=== PATIENT | male | born 1965 | race African-American/Black ===

== ENCOUNTER 2017-08-08 14:48 | Inpatient (IN) | payer MEDICAID ==
[~2017-08-08] VITALS: Ht 180.3 cm; Wt 107.5 kg
[2017-08-08] MEDS ORDERED: ALBUTEROL (0.083%) 2.5MG/3ML NEB HHN ONE (19:00)
[2017-08-08 19:08] LABS: BASOPHILS % 0.6 % (0.0-2.0); EOSINOPHILS % 2.2 % (0.0-5.0); HEMATOCRIT. 40.3 % (42.0-52.0); HEMOGLOBIN. 13.1 g/dL (14.0-18.0); LYMPHOCYTES % 18.2 % (20.0-50.0); MEAN CORPUSCULAR HEMOGLOBIN 27.6 pg (28.0-32.0); MEAN CORPUSCULAR VOLUME 84.8 fL (80.0-94.0); MEAN PLATELET VOLUME 8.9 fl (7.4-10.4); MONOCYTES % 8.6 % (2.0-8.0); NEUTROPHILS % 70.4 % (40.0-76.0); PLATELET 231 x1000/uL (130-400); RED BLOOD CELL COUNT 4.75 mill/uL (4.7-6.1); RED CELL DISTRIBUTION WIDTH 17.2 % (11.6-14.6)
[2017-08-08 19:14] LABS: INR 1.2; PARTIAL THROMBOPLASTIN TIME 24.3 sec (23.4-31.0); PROTHROMBIN TIME 12.8 sec (9.4-11.6)
[2017-08-08 19:17] LABS: CARBON DIOXIDE 27 mEq/L (21-32); CHLORIDE 108 mEq/L (98-107)
[2017-08-08 19:22] LABS: TROPONIN I 0.03 ng/mL (0.00-0.04)
[2017-08-08 19:53] LABS: CLARITY URINE CLEAR (CLEAR); COLOR URINE YELLOW (YELLOW); KETONES URINE NEGATIVE (NEGATIVE); LEUKOCYTE ESTERASE URINE TRACE (NEGATIVE); NITRITE URINE NEGATIVE (NEGATIVE); OCCULT BLOOD URINE NEGATIVE (NEGATIVE); PROTEIN URINE TRACE (NEGATIVE)
[2017-08-08] MEDS ORDERED: ASPIRIN 325MG TABLET PO ONE (20:15)
[2017-08-08] MEDS ORDERED: FUROSEMIDE 40MG/4ML VIAL IVP ONE (20:15)
[2017-08-08] MEDS ORDERED: IPRATROPIUM/ALBUTEROL 0.5-3(2.5)MG/3ML NEB INH PRN (23:45)
[2017-08-08] MEDS ORDERED: CLONIDINE 0.1MG TABLET PO PRN (23:45)
[2017-08-08] MEDS ORDERED: ACETAMINOPHEN 325MG TABLET PO PRN (23:45)
[2017-08-08] MEDS ORDERED: ONDANSETRON HCL 4MG/2ML VIAL IV PRN (23:45)
[2017-08-08] MEDS ORDERED: MAGNESIUM/ALUMINUM HYDROXIDE/SIMETHICONE 30ML UDC PO PRN (23:45)
[2017-08-09 05:54] LABS: BASOPHILS % 0.6 % (0.0-2.0); EOSINOPHILS % 2.1 % (0.0-5.0); HEMATOCRIT. 42.1 % (42.0-52.0); HEMOGLOBIN. 13.4 g/dL (14.0-18.0); LYMPHOCYTES % 16.7 % (20.0-50.0); MEAN CORPUSCULAR HEMOGLOBIN 27.1 pg (28.0-32.0); MEAN CORPUSCULAR VOLUME 85.2 fL (80.0-94.0); MEAN PLATELET VOLUME 8.8 fl (7.4-10.4); MONOCYTES % 12.3 % (2.0-8.0); NEUTROPHILS % 68.3 % (40.0-76.0); PLATELET 221 x1000/uL (130-400); RED BLOOD CELL COUNT 4.95 mill/uL (4.7-6.1); RED CELL DISTRIBUTION WIDTH 17.5 % (11.6-14.6)
[2017-08-09 06:09] LABS: TROPONIN I 0.04 ng/mL (0.00-0.04)
[2017-08-09 10:17] LABS: *AMPHETAMINES SCREEN URINE NEGATIVE (NEGATIVE); *BARBITURATES SCREEN URINE NEGATIVE (NEGATIVE); *BENZODIAZEPINES SCREEN URINE NEGATIVE (NEGATIVE); *COCAINE SCREEN URINE PRESUMTIVE POSITIVE (NEGATIVE); CANNABINOID URINE SCREEN NEGATIVE (NEGATIVE); METHADONE URINE SCREEN NEGATIVE (NEGATIVE); OPIATES URINE SCREEN NEGATIVE (NEGATIVE); PHENCYCLIDINE URINE SCREEN NEGATIVE (NEGATIVE)
[2017-08-09] MEDS: FUROSEMIDE 40MG/4ML VIAL IV SCH ×2 (11:01→16:41)
[2017-08-09 12:00] VITALS: BP 170/117
[2017-08-09 13:25] LABS: CLARITY URINE CLEAR (CLEAR); COLOR URINE YELLOW (YELLOW); KETONES URINE NEGATIVE (NEGATIVE); LEUKOCYTE ESTERASE URINE NEGATIVE (NEGATIVE); NITRITE URINE NEGATIVE (NEGATIVE); OCCULT BLOOD URINE NEGATIVE (NEGATIVE); PH URINE 7.5 (4.5-8.0); PROTEIN URINE NEGATIVE (NEGATIVE); SPECIFIC GRAVITY URINE 1.007 (1.005-1.030); UROBILINOGEN URINE 0.2 E.U./dL (0.2-1.0)
[2017-08-09 13:30] VITALS: BP 170/117
[2017-08-09 13:50] LABS: HEPATITIS B SURFACE ANTIGEN NEGATIVE
[2017-08-09 14:18] LABS: HEPATITIS B CORE AB IGM NEGATIVE
[2017-08-09 14:20] LABS: HEPATITIS A AB IGM NEGATIVE (NEGATIVE)
[2017-08-09 15:30] VITALS: BP 170/117
[2017-08-09] MEDS ORDERED: LISINOPRIL 10MG TABLET PO SCH (15:30)
[2017-08-09 15:39] LABS: CREATINE KINASE MB FRACTION 3.5 ng/mL (0.5-3.6); TROPONIN I 0.02 ng/mL (0.00-0.04)
[2017-08-09 16:00] VITALS: BP 157/105
[2017-08-09] MEDS ORDERED: INFLUENZA VIRUS VACCINE 0.5ML SYR IM ONE (17:00)
[2017-08-09] MEDS ORDERED: PNEUMOCOCCAL 23-VAL P-SAC VAC 0.5 ML IM ONE (17:00)
[2017-08-09] MEDS ORDERED: DEXTROSE 50% WATER 50ML SYRINGE IV PRN (18:00)
[2017-08-09] MEDS ORDERED: LISI-186 PO (18:33)
[2017-08-09] MEDS ORDERED: GLIP10TA10 PO (18:33)
[2017-08-09] MEDS ORDERED: ASPI-1159 PO (18:33)
[2017-08-09] MEDS ORDERED: FURO40TA5 PO (18:33)
[2017-08-09] MEDS ORDERED: DICL75TA5 PO (18:33)
[2017-08-09] MEDS ORDERED: CARV12.545 PO (18:33)
[2017-08-09 20:00] VITALS: BP 134/99
[2017-08-09] MEDS: INSULIN LISPRO 100 UNITS/ML SUBCUT SCH (21:00)
[2017-08-09] MEDS ORDERED: ATORVASTATIN CALCIUM 10MG TABLET PO SCH (21:00)
[2017-08-09] MEDS: BLOOD SUGAR DIAGNOSTIC STRIP TEST SCH (21:00)
[2017-08-09] MEDS: AMLODIPINE 5MG TABLET PO SCH (21:29)
[2017-08-09] MEDS: LISINOPRIL 10MG TABLET PO SCH (21:29)
[2017-08-09] MEDS: ENOXAPARIN 30MG/0.3ML SYR SUBCUT SCH (21:32)
[2017-08-09] MEDS: ISOSORB DINIT/HYDRALAZINE HCL 20/37.5MG TABLET PO SCH (22:57)
[2017-08-10] VITALS: BP 137/92
[2017-08-10 04:00] VITALS: BP 141/97
[2017-08-10] MEDS: BLOOD SUGAR DIAGNOSTIC STRIP TEST SCH ×2 (06:38→11:45)
[2017-08-10] MEDS: INSULIN LISPRO 100 UNITS/ML SUBCUT SCH ×2 (06:38→12:15)
[2017-08-10] MEDS: ISOSORB DINIT/HYDRALAZINE HCL 20/37.5MG TABLET PO SCH ×2 (06:40→13:46)
[2017-08-10 08:00] VITALS: BP 139/87
[2017-08-10] MEDS: ASPIRIN 81MG EC TABLET PO SCH ×2 (08:49→08:50)
[2017-08-10] MEDS: FUROSEMIDE 40MG/4ML VIAL IV SCH (08:50)
[2017-08-10] MEDS: ENOXAPARIN 30MG/0.3ML SYR SUBCUT SCH (08:50)
[2017-08-10] MEDS: LISINOPRIL 10MG TABLET PO SCH (08:50)
[2017-08-10] MEDS: AMLODIPINE 5MG TABLET PO SCH (08:50)
[2017-08-10 12:00] VITALS: BP 129/87
[2017-08-10] MEDS ORDERED: ATOR10TA PO (13:38)
[2017-08-10] MEDS ORDERED: AMLO5TAB88 PO (13:38)
[2017-08-10] MEDS ORDERED: ISOS1TAB PO (13:38)
[2017-08-10] MEDS ORDERED: LISI10TA5 PO (13:38)
[2017-08-10] MEDS ORDERED: FURO-151 PO (13:38)
[2017-08-10 16:00] VITALS: BP 136/91
[2017-08-10 16:41] VITALS: BP 128/68
== END 2017-08-10 17:10 | disposition home or self-care (01) | DRG 194 ==
LOC: ER 14:48 → EDBEDREQ 18:59 → 5WST 20:34 → EDBEDREQ 08-09 07:03 → ENRESERV 08-09 12:02
PROVIDERS: ADMIT Internal Medicine; ATTEND Internal Medicine
DX: I13.0 Hypertensive heart and chronic kidney disease with heart failure and stage 1 through stage 4 chronic kidney disease, or unspecified chronic kidney disease (principal); N17.9 Acute kidney failure, unspecified; E44.0 Moderate protein-calorie malnutrition; I42.9 Cardiomyopathy, unspecified; I50.43 Acute on chronic combined systolic (congestive) and diastolic (congestive) heart failure; E11.22 Type 2 diabetes mellitus with diabetic chronic kidney disease; E78.5 Hyperlipidemia, unspecified; F14.90 Cocaine use, unspecified, uncomplicated; N18.9 Chronic kidney disease, unspecified; F19.10 Other psychoactive substance abuse, uncomplicated; Z91.19 Patient's noncompliance with other medical treatment and regimen; Z82.49 Family history of ischemic heart disease and other diseases of the circulatory system; Z79.84 Long term (current) use of oral hypoglycemic drugs; Z68.33 Body mass index [BMI] 33.0-33.9, adult
CPT/HCPCS: 36415; 71045; 74176; 80048; 80053; 80061; 80305; 81001; 81003; 82550; 82553; 82962; 83880; 84443; 84484; 85025; 85610; 85730; 86705; 86709; 86803; 87086; 87340; 90686; 90732; 93005; 93306; 93970; 94640; 96374; 99285; J1650; J1940; J7611

== ENCOUNTER 2020-03-20 09:54 | Inpatient (IN) | payer MEDICAID ==
[~2020-03-20] VITALS: Ht 180.3 cm; Wt 74.8 kg
[~2020-03-20 09:54] MED LIST: ASPI-1497 PO; CARV12.545 PO; GLIP5TAB12 PO
[2020-03-20] MEDS ORDERED: AZITHROMYCIN 500 MG in DEXT 5% WATER 250 ML IV SCH (10:30)
[2020-03-20] MEDS ORDERED: VANCOMYCIN 1 G PREMIX 200 ML IV SCH (10:30)
[2020-03-20] MEDS ORDERED: SODIUM CHLORIDE 0.9% 1000ML BAG (SEPSIS BOLUS) IV ONE (10:30)
[2020-03-20] MEDS ORDERED: PIPERACILLIN/TAZOBACTAM 3.375GM/50ML PREMIX IV NR (10:38)
[2020-03-20 10:39] LABS: BASOPHILS % 0.6 % (0.0-2.0); EOSINOPHILS % 1.2 % (0.0-5.0); HEMATOCRIT. 43.2 % (42.0-52.0); HEMOGLOBIN. 14.4 g/dL (14.0-18.0); LYMPHOCYTES % 37.9 % (20.0-50.0); MEAN CORPUSCULAR HEMOGLOBIN 28.2 pg (28.0-32.0); MEAN CORPUSCULAR VOLUME 84.8 fL (80.0-94.0); MONOCYTES % 6.4 % (2.0-8.0); NEUTROPHILS % 53.9 % (40.0-76.0); PLATELET 186 x1000/uL (130-400); RED BLOOD CELL COUNT 5.09 mill/uL (4.7-6.1); RED CELL DISTRIBUTION WIDTH 13.6 % (11.6-14.6)
[2020-03-20 10:50] LABS: CHLORIDE 108 mEq/L (98-107)
[2020-03-20 10:55] LABS: ETHANOL BLOOD < 10 mg/dL
[2020-03-20] MEDS ORDERED: DEXT 5%/0.45% NACL KCL 20MEQ/L 1,000 ML IV ONE (13:15)
[2020-03-20 16:22] VITALS: BP 122/78
[2020-03-20] MEDS ORDERED: IPRATROPIUM/ALBUTEROL 0.5-3(2.5)MG/3ML NEB NEB PRN (19:00)
[2020-03-20] MEDS ORDERED: CLONIDINE 0.1MG TABLET PO PRN (19:00)
[2020-03-20] MEDS ORDERED: DEXTROSE 50% WATER 50ML SYRINGE IV PRN (19:00)
[2020-03-20] MEDS ORDERED: DIPHENHYDRAMINE 50MG/ML VIAL IV PRN (19:00)
[2020-03-20] MEDS ORDERED: HYDRALAZINE 20MG/ML VIAL IV PRN (19:00)
[2020-03-20] MEDS ORDERED: MAGNESIUM/ALUMINUM HYDROXIDE/SIMETHICONE 30ML UDC PO PRN (19:00)
[2020-03-20] MEDS ORDERED: NA PHOS,M-B/NA PHOS,DI-BA ENEMA 118ML PR PRN (19:00)
[2020-03-20] MEDS ORDERED: ONDANSETRON HCL 4MG/2ML INJ IV PRN (19:00)
[2020-03-20] MEDS ORDERED: LORAZEPAM 2MG/ML CPJ IV PRN (19:00)
[2020-03-20] MEDS ORDERED: ACETAMINOPHEN 325MG TABLET PO PRN (19:00)
[2020-03-20] MEDS ORDERED: POTASSIUM CHLORIDE 20MEQ TABLET SR PO NR (19:00)
[2020-03-20] MEDS ORDERED: HYDROCODONE/ACETAMINOPHEN 10/325MG TABLET PO PRN (19:00)
[2020-03-20] MEDS ORDERED: GUAIFENESIN 200MG/10ML SUGAR FREE UDC PO PRN (19:00)
[2020-03-20] MEDS ORDERED: DOCUSATE SODIUM 100MG CAPSULE PO PRN (19:00)
[2020-03-20 20:00] VITALS: BP 109/78
[2020-03-20] MEDS: ENOXAPARIN 40MG/0.4ML SYR SUBCUT SCH (20:21)
[2020-03-20] MEDS: SODIUM CHLORIDE 0.45% 1,000 ML IV SCH (20:22)
[2020-03-20] MEDS: INSULIN LISPRO 100 UNITS/ML SUBCUT SCH (20:37)
[2020-03-20] MEDS: BLOOD SUGAR DIAGNOSTIC STRIP TEST SCH (20:37)
[2020-03-20] MEDS: SODIUM CHLORIDE 0.9% INJ 3ML FLUSH IVF SCH (20:38)
[2020-03-21] VITALS: BP 122/79
[2020-03-21 00:11] LABS: CLARITY URINE CLEAR (CLEAR); COLOR URINE YELLOW (YELLOW); KETONES URINE NEGATIVE (NEGATIVE); LEUKOCYTE ESTERASE URINE NEGATIVE (NEGATIVE); NITRITE URINE NEGATIVE (NEGATIVE); OCCULT BLOOD URINE NEGATIVE (NEGATIVE); PROTEIN URINE NEGATIVE (NEGATIVE); SPECIFIC GRAVITY URINE 1.025 (1.005-1.030); UROBILINOGEN URINE 0.2 E.U./dL (0.2-1.0)
[2020-03-21 00:23] LABS: *AMPHETAMINES SCREEN URINE NEGATIVE (NEGATIVE); *BARBITURATES SCREEN URINE NEGATIVE (NEGATIVE); *COCAINE SCREEN URINE PRESUMTIVE POSITIVE (NEGATIVE)
[2020-03-21 00:24] LABS: *BENZODIAZEPINES SCREEN URINE NEGATIVE (NEGATIVE); CANNABINOID URINE SCREEN NEGATIVE (NEGATIVE); METHADONE URINE SCREEN NEGATIVE (NEGATIVE); OPIATES URINE SCREEN NEGATIVE (NEGATIVE); PHENCYCLIDINE URINE SCREEN NEGATIVE (NEGATIVE)
[2020-03-21 00:34] LABS: CREATINE KINASE MB FRACTION 1.6 ng/mL (0.5-3.6)
[2020-03-21 04:30] VITALS: BP 121/75
[2020-03-21] MEDS: BLOOD SUGAR DIAGNOSTIC STRIP TEST SCH ×4 (06:24→20:27)
[2020-03-21] MEDS: SODIUM CHLORIDE 0.9% INJ 3ML FLUSH IVF SCH ×3 (06:24→22:00)
[2020-03-21 07:14] LABS: CHLORIDE 104 mEq/L (98-107); EOSINOPHILS % 1.8 % (0.0-5.0); HEMATOCRIT. 43.2 % (42.0-52.0); HEMOGLOBIN. 14.2 g/dL (14.0-18.0); LYMPHOCYTES % 43.9 % (20.0-50.0); MEAN CORPUSCULAR HEMOGLOBIN 28.1 pg (28.0-32.0); MEAN CORPUSCULAR VOLUME 85.8 fL (80.0-94.0); MEAN PLATELET VOLUME 9.3 fl (7.4-10.4); MONOCYTES % 6.1 % (2.0-8.0); NEUTROPHILS % 47.2 % (40.0-76.0); PLATELET 167 x1000/uL (130-400); RED BLOOD CELL COUNT 5.03 mill/uL (4.7-6.1); RED CELL DISTRIBUTION WIDTH 13.9 % (11.6-14.6)
[2020-03-21 07:24] LABS: CREATINE KINASE 90 IU/L (39-308)
[2020-03-21 07:28] LABS: CREATINE KINASE MB FRACTION 1.4 ng/mL (0.5-3.6)
[2020-03-21] MEDS: INSULIN LISPRO 100 UNITS/ML SUBCUT SCH ×4 (07:50→20:33)
[2020-03-21 08:00] VITALS: BP 143/97
[2020-03-21 09:58] LABS: T4 FREE 1.21 ng/dL (0.76-1.46)
[2020-03-21 12:00] VITALS: BP 101/70
[2020-03-21] MEDS ORDERED: INSULIN LISPRO 100 UNITS/ML SUBCUT NR (13:00)
[2020-03-21 16:00] VITALS: BP 120/64
[2020-03-21 16:30] LABS: CREATINE KINASE 79 IU/L (39-308)
[2020-03-21 16:31] LABS: CREATINE KINASE MB FRACTION 1.3 ng/mL (0.5-3.6)
[2020-03-21] MEDS: INSULIN GLARGINE UD 100 UNITS/ML SYR SUBCUT SCH (17:14)
[2020-03-21] MEDS: SODIUM CHLORIDE 0.45% 1,000 ML IV SCH (19:58)
[2020-03-21 20:00] VITALS: BP 116/75
[2020-03-21] MEDS: ENOXAPARIN 40MG/0.4ML SYR SUBCUT SCH (20:34)
[2020-03-22] VITALS (7 sets, daily range): BP systolic 124–166; BP diastolic 81–120
[2020-03-22 00:10] LABS: CREATINE KINASE 78 IU/L (39-308)
[2020-03-22 00:11] LABS: CREATINE KINASE MB FRACTION 1.4 ng/mL (0.5-3.6)
[2020-03-22] MEDS: SODIUM CHLORIDE 0.9% INJ 3ML FLUSH IVF SCH ×2 (05:49→21:19)
[2020-03-22 06:02] LABS: CREATINE KINASE 81 IU/L (39-308)
[2020-03-22 06:04] LABS: CREATINE KINASE MB FRACTION 1.4 ng/mL (0.5-3.6)
[2020-03-22] MEDS: BLOOD SUGAR DIAGNOSTIC STRIP TEST SCH ×4 (06:22→21:16)
[2020-03-22] MEDS: INSULIN LISPRO 100 UNITS/ML SUBCUT SCH ×4 (08:29→21:20)
[2020-03-22] MEDS: INSULIN GLARGINE UD 100 UNITS/ML SYR SUBCUT SCH (10:15)
[2020-03-22] MEDS ORDERED: INSULIN GLARGINE UD 100 UNITS/ML SYR SUBCUT SCH (15:00)
[2020-03-22] MEDS: SODIUM CHLORIDE 0.45% 1,000 ML IV SCH (20:12)
[2020-03-22] MEDS: ENOXAPARIN 40MG/0.4ML SYR SUBCUT SCH (20:42)
[2020-03-23] VITALS: BP 146/94
[2020-03-23 04:00] VITALS: BP 152/88
[2020-03-23] MEDS: SODIUM CHLORIDE 0.9% INJ 3ML FLUSH IVF SCH ×2 (06:43→13:26)
[2020-03-23] MEDS: BLOOD SUGAR DIAGNOSTIC STRIP TEST SCH ×2 (06:43→12:13)
[2020-03-23 08:00] VITALS: BP 141/90
[2020-03-23] MEDS: INSULIN LISPRO 100 UNITS/ML SUBCUT SCH ×2 (08:46→13:25)
[2020-03-23] MEDS: INSULIN GLARGINE UD 100 UNITS/ML SYR SUBCUT SCH (09:09)
[2020-03-23 12:00] VITALS: BP 149/94
[2020-03-23 14:40] VITALS: BP 149/94
[2020-03-23 16:00] VITALS: BP 140/77
== END 2020-03-23 16:15 | disposition home or self-care (01) | DRG 469 ==
LOC: ER 09:54 → EDBEDREQ 10:28 → 6WST 13:03 → EDBEDREQ 13:08 → EDBEDREQSVC 13:09 → ENRESERV 14:16
PROVIDERS: ADMIT Internal Medicine; ATTEND Internal Medicine
DX: N17.0 Acute kidney failure with tubular necrosis (principal); E11.40 Type 2 diabetes mellitus with diabetic neuropathy, unspecified; J96.00 Acute respiratory failure, unspecified whether with hypoxia or hypercapnia; E46 Unspecified protein-calorie malnutrition; F14.10 Cocaine abuse, uncomplicated; E86.0 Dehydration; E87.6 Hypokalemia; I11.0 Hypertensive heart disease with heart failure; I50.30 Unspecified diastolic (congestive) heart failure; N48.1 Balanitis; Z91.19 Patient's noncompliance with other medical treatment and regimen; Z79.82 Long term (current) use of aspirin; Z79.84 Long term (current) use of oral hypoglycemic drugs; Z87.891 Personal history of nicotine dependence; Z91.14 Patient's other noncompliance with medication regimen; Z79.899 Other long term (current) drug therapy; Z88.0 Allergy status to penicillin; Z68.23 Body mass index [BMI] 23.0-23.9, adult
CPT/HCPCS: 36415; 71045; 76700; 80053; 80061; 80305; 80320; 81003; 82550; 82553; 82962; 83036; 83605; 83880; 84439; 84443; 84484; 85025; 85379; 86850; 86900; 93005; 93306; 93970; 99291; J0360; J0456; J1650; J1815; J2543; J3370; J7030; J7060; G0480

== ENCOUNTER 2020-12-15 02:11 | Emergency (ER) | payer MEDICAID ==
[~2020-12-15] VITALS: Ht 177.8 cm; Wt 90.0 kg
[2020-12-15 02:18] VITALS: BP 142/94
[2020-12-15] MEDS ORDERED: ONDANSETRON HCL 4MG/2ML INJ IV STA (04:13)
[2020-12-15] MEDS ORDERED: SODIUM CHLORIDE 0.9% 1,000 ML IV ONE (04:15)
[2020-12-15 05:17] LABS: CLARITY URINE CLEAR (CLEAR); COLOR URINE YELLOW (YELLOW); KETONES URINE TRACE (NEGATIVE); LEUKOCYTE ESTERASE URINE NEGATIVE (NEGATIVE); NITRITE URINE NEGATIVE (NEGATIVE); OCCULT BLOOD URINE TRACE (NEGATIVE); PROTEIN URINE 3+ (NEGATIVE); UROBILINOGEN URINE 0.2 E.U./dL (0.2-1.0)
[2020-12-15 05:51] LABS: CHLORIDE 106 mEq/L (98-107)
[2020-12-15 06:01] LABS: BASOPHILS % 0.4 % (0.0-2.0); BETA HYDROXYBUTYRATE 0.4 mMol/L (0.0-0.3); EOSINOPHILS % 0.5 % (0.0-5.0); HEMATOCRIT. 50.6 % (42.0-52.0); HEMOGLOBIN. 16.2 g/dL (14.0-18.0); LYMPHOCYTES % 16.9 % (20.0-50.0); MEAN CORPUSCULAR HEMOGLOBIN 27.8 pg (28.0-32.0); MEAN CORPUSCULAR VOLUME 87.1 fL (80.0-94.0); MEAN PLATELET VOLUME 9.4 fl (7.4-10.4); MONOCYTES % 7.4 % (2.0-8.0); NEUTROPHILS % 74.8 % (40.0-76.0); PLATELET 154 x1000/uL (130-400); RED BLOOD CELL COUNT 5.81 mill/uL (4.7-6.1); RED CELL DISTRIBUTION WIDTH 14.5 % (11.6-14.6)
[2020-12-15] MEDS ORDERED: CIPR-263 MT (06:22)
[2020-12-15] MEDS ORDERED: ONDA4TAB5 MT (06:22)
== END 2020-12-15 07:21 | disposition home or self-care (01) ==
LOC: ER 02:43
DX: E86.0 Dehydration (principal); N39.0 Urinary tract infection, site not specified; R11.10 Vomiting, unspecified; F14.10 Cocaine abuse, uncomplicated; I11.0 Hypertensive heart disease with heart failure; I50.9 Heart failure, unspecified; E78.00 Pure hypercholesterolemia, unspecified; E11.9 Type 2 diabetes mellitus without complications; Z88.0 Allergy status to penicillin; Z79.82 Long term (current) use of aspirin
CPT/HCPCS: 36415; 80053; 81003; 82010; 83605; 83690; 83880; 84484; 85025; 93005; 96361; 96374; 99284; J2405; J7030

== ENCOUNTER 2022-08-04 10:55 | Inpatient (IN) | payer MEDICAID ==
[~2022-08-04] VITALS: Ht 180.3 cm; Wt 97.5 kg
[~2022-08-04 10:55] MED LIST changes: +CIPR-263 MT; +ONDA4TAB5 MT
[2022-08-04] MEDS ORDERED: FUROSEMIDE 40MG/4ML VIAL IV ONE (11:00)
[2022-08-04 11:36] LABS: HEMATOCRIT. 42.6 % (42.0-52.0); HEMOGLOBIN. 13.5 g/dL (14.0-18.0); MEAN CORPUSCULAR HEMOGLOBIN 27.7 pg (28.0-32.0); MEAN CORPUSCULAR VOLUME 87.3 fL (80.0-94.0); MEAN PLATELET VOLUME 9.1 fl (7.4-10.4); PLATELET 123 x1000/uL (130-400); RED BLOOD CELL COUNT 4.88 mill/uL (4.7-6.1)
[2022-08-04 11:58] LABS: CHLORIDE 107 mEq/L (98-107)
[2022-08-04 12:06] LABS: ETHANOL BLOOD < 10 mg/dL
[2022-08-04 12:10] LABS: PLATELET ESTIMATE SLIGHTLY DECREASED
[2022-08-04 12:11] LABS: INR 1.2; PARTIAL THROMBOPLASTIN TIME 28.5 sec (23.4-31.0)
[2022-08-04] MEDS: ASPIRIN 81MG TABLET PO ONE ×2 (12:17→12:27)
[2022-08-04] MEDS ORDERED: CEFTRIAXONE 1 G PREMIX 50 ML IV ONE (12:45)
[2022-08-04] MEDS ORDERED: METRONIDAZOLE 500 MG PREMIX 100 ML IV ONE (12:45)
[2022-08-04 14:54] LABS: CLARITY URINE CLEAR (CLEAR); COLOR URINE DARK YELLOW (YELLOW); KETONES URINE TRACE (NEGATIVE); LEUKOCYTE ESTERASE URINE NEGATIVE (NEGATIVE); NITRITE URINE NEGATIVE (NEGATIVE); OCCULT BLOOD URINE 1+ (NEGATIVE); PROTEIN URINE 4+ (NEGATIVE)
[2022-08-04] MEDS ORDERED: IPRATROPIUM/ALBUTEROL 0.5-3(2.5)MG/3ML NEB HHN PRN (15:00)
[2022-08-04] MEDS ORDERED: DIPHENHYDRAMINE 50MG/ML VIAL IV PRN (15:00)
[2022-08-04] MEDS ORDERED: CLONIDINE 0.1MG TABLET PO PRN (15:00)
[2022-08-04] MEDS ORDERED: ZOLPIDEM TARTRATE 5MG TABLET PO PRN (15:00)
[2022-08-04] MEDS ORDERED: DEXTROSE 50% WATER 50ML SYRINGE IV PRN (15:00)
[2022-08-04] MEDS ORDERED: MAGNESIUM/ALUMINUM HYDROXIDE/SIMETHICONE 30ML UDC PO PRN ×2 (15:00→20:15)
[2022-08-04] MEDS ORDERED: LORAZEPAM 2MG/ML CPJ IV PRN (15:00)
[2022-08-04] MEDS ORDERED: ACETAMINOPHEN 325MG TABLET PO PRN (15:00)
[2022-08-04] MEDS ORDERED: LORAZEPAM 0.5MG TABLET PO PRN (15:00)
[2022-08-04 15:43] LABS: *AMPHETAMINES SCREEN URINE NEGATIVE (NEGATIVE); *BARBITURATES SCREEN URINE NEGATIVE (NEGATIVE); *BENZODIAZEPINES SCREEN URINE NEGATIVE (NEGATIVE); *COCAINE SCREEN URINE PRESUMTIVE POSITIVE (NEGATIVE); CANNABINOID URINE SCREEN NEGATIVE (NEGATIVE); METHADONE URINE SCREEN NEGATIVE (NEGATIVE); OPIATES URINE SCREEN NEGATIVE (NEGATIVE); PHENCYCLIDINE URINE SCREEN NEGATIVE (NEGATIVE)
[2022-08-04] MEDS: BLOOD SUGAR DIAGNOSTIC STRIP TEST SCH ×2 (18:17→21:00)
[2022-08-04] MEDS: INSULIN LISPRO 100 UNITS/ML SUBCUT SCH (18:22)
[2022-08-04] MEDS: INSULIN GLARGINE 100 UNITS/ML SUBCUT SCH (21:48)
[2022-08-04] MEDS: PANTOPRAZOLE 40MG DR TABLET PO SCH (21:51)
[2022-08-05] VITALS (7 sets, daily range): BP systolic 109–143; BP diastolic 77–103
[2022-08-05] MEDS: INSULIN LISPRO 100 UNITS/ML SUBCUT SCH ×5 (01:21→20:32)
[2022-08-05] MEDS: ONDANSETRON HCL 4MG/2ML INJ IV PRN (01:22)
[2022-08-05] MEDS: ACETAMINOPHEN 325MG TABLET PO PRN ×2 (01:22→16:32)
[2022-08-05] MEDS: SODIUM CHLORIDE 0.9% INJ 3ML FLUSH IVF SCH ×4 (01:23→21:14)
[2022-08-05 06:22] LABS: HEMATOCRIT. 42.1 % (42.0-52.0); HEMOGLOBIN. 13.4 g/dL (14.0-18.0); MEAN CORPUSCULAR HEMOGLOBIN 28.1 pg (28.0-32.0); MEAN CORPUSCULAR VOLUME 88.5 fL (80.0-94.0); MEAN PLATELET VOLUME 9.3 fl (7.4-10.4); PLATELET 125 x1000/uL (130-400); RED BLOOD CELL COUNT 4.75 mill/uL (4.7-6.1); RED CELL DISTRIBUTION WIDTH 18.2 % (11.6-14.6)
[2022-08-05] MEDS: PANTOPRAZOLE 40MG DR TABLET PO SCH ×2 (06:29→21:01)
[2022-08-05] MEDS: BLOOD SUGAR DIAGNOSTIC STRIP TEST SCH ×4 (06:40→20:32)
[2022-08-05] MEDS: FUROSEMIDE 40MG/4ML VIAL IVP SCH (09:39)
[2022-08-05] MEDS: LOSARTAN POTASSIUM 25 MG TABLET PO SCH (09:40)
[2022-08-05] MEDS: INSULIN GLARGINE 100 UNITS/ML SUBCUT SCH (21:02)
[2022-08-05 23:47] LABS: PLATELET ESTIMATE SLIGHTLY DECREASED
[2022-08-06] VITALS: BP 120/79
[2022-08-06 04:00] VITALS: BP 132/96
[2022-08-06] MEDS: SODIUM CHLORIDE 0.9% INJ 3ML FLUSH IVF SCH ×3 (06:17→21:21)
[2022-08-06] MEDS: PANTOPRAZOLE 40MG DR TABLET PO SCH ×2 (06:17→21:20)
[2022-08-06] MEDS: BLOOD SUGAR DIAGNOSTIC STRIP TEST SCH ×4 (06:41→21:20)
[2022-08-06 08:00] VITALS: BP 146/113
[2022-08-06] MEDS: INSULIN LISPRO 100 UNITS/ML SUBCUT SCH ×4 (08:10→21:00)
[2022-08-06] MEDS: FUROSEMIDE 40MG/4ML VIAL IVP SCH (08:41)
[2022-08-06] MEDS: ACETAMINOPHEN 325MG TABLET PO PRN (08:41)
[2022-08-06] MEDS: LOSARTAN POTASSIUM 25 MG TABLET PO SCH (08:42)
[2022-08-06 12:00] VITALS: BP 122/86
[2022-08-06] MEDS: ONDANSETRON HCL 4MG/2ML INJ IV PRN (15:01)
[2022-08-06 16:00] VITALS: BP 134/59
[2022-08-06 20:00] VITALS: BP 120/83
[2022-08-06] MEDS: INSULIN GLARGINE 100 UNITS/ML SUBCUT SCH (21:22)
[2022-08-07] VITALS: BP 127/88
[2022-08-07 02:19] VITALS: BP 127/88
[2022-08-07 04:00] VITALS: BP 131/86
[2022-08-07] MEDS: SODIUM CHLORIDE 0.9% INJ 3ML FLUSH IVF SCH (05:33)
[2022-08-07] MEDS: BLOOD SUGAR DIAGNOSTIC STRIP TEST SCH (06:08)
[2022-08-07] MEDS ORDERED: LOSARTAN POTASSIUM 25 MG TABLET PO SCH (09:00)
== END 2022-08-07 10:00 | disposition home or self-care (01) | DRG 194 ==
LOC: ER 10:55 → MICUSO 12:31 → EDBEDREQ 12:34 → 7WST 08-05 00:55
PROVIDERS: ADMIT Internal Medicine; ATTEND Internal Medicine
DX: I11.0 Hypertensive heart disease with heart failure (principal); N17.9 Acute kidney failure, unspecified; E11.9 Type 2 diabetes mellitus without complications; I50.23 Acute on chronic systolic (congestive) heart failure; E78.00 Pure hypercholesterolemia, unspecified; Z20.822 Contact with and (suspected) exposure to COVID-19; R10.9 Unspecified abdominal pain; F14.90 Cocaine use, unspecified, uncomplicated; Z88.0 Allergy status to penicillin; Z88.8 Allergy status to other drugs, medicaments and biological substances; T50.906A Underdosing of unspecified drugs, medicaments and biological substances, initial encounter; Z91.199 Patient's noncompliance with other medical treatment and regimen due to unspecified reason; R65.10 Systemic inflammatory response syndrome (SIRS) of non-infectious origin without acute organ dysfunction
CPT/HCPCS: 36415; 71045; 74176; 76705; 80048; 80053; 80305; 80320; 81003; 82962; 83036; 83605; 83735; 83880; 84484; 85025; 87426; 93005; 93306; 93970; 94640; 99285; J0696; J1815; J1940; J2405; J3490; G0480

== ENCOUNTER 2024-05-31 08:36 | Inpatient (IN) | payer MEDICAID ==
[~2024-05-31] VITALS: Ht 170.2 cm; Wt 85.3 kg
[~2024-05-31 08:36] MED LIST changes: -CIPR-263 MT; +FURO-151 MT; -GLIP5TAB12 PO; +GLIP5TAB22 MT; +LIP40 MT; +LOSA50TA41 MT; -ONDA4TAB5 MT; +POTA-205 MT
[2024-05-31 08:38] VITALS: O2SAT 99
[2024-05-31] MEDS: DEXTROSE 50% WATER 50ML SYRINGE IV ONE ×2 (09:01→09:05)
[2024-05-31 09:22] LABS: POTASSIUM 4.7 mEq/L (3.5-5.1)
[2024-05-31 09:23] LABS: CLARITY URINE CLEAR (CLEAR); COLOR URINE YELLOW (YELLOW); GLUCOSE URINE NEGATIVE (NEGATIVE); KETONES URINE NEGATIVE (NEGATIVE); LEUKOCYTE ESTERASE URINE NEGATIVE (NEGATIVE); NITRITE URINE NEGATIVE (NEGATIVE); OCCULT BLOOD URINE NEGATIVE (NEGATIVE); PROTEIN URINE 3+ (NEGATIVE); SPECIFIC GRAVITY URINE 1.018 (1.005-1.030); UROBILINOGEN URINE 0.2 E.U./dL (0.2-1.0)
[2024-05-31 09:24] LABS: CALCIUM 8.6 mg/dL (8.7-10.4)
[2024-05-31 09:28] LABS: CREATININE 2.3 mg/dL (0.6-1.3)
[2024-05-31 09:29] LABS: BASOPHILS % 0.6 % (0.0-2.0); HEMOGLOBIN. 13.4 g/dL (14.0-18.0); LYMPHOCYTES % 15.7 % (20.0-50.0); MEAN CORPUSCULAR HEMOGLOBIN 27.3 pg (28.0-32.0); MEAN CORPUSCULAR HGB CONC 31.1 g/dL (31.0-37.0); MEAN CORPUSCULAR VOLUME 87.7 fL (80.0-94.0); MEAN PLATELET VOLUME 9.1 fl (7.4-10.4); MONOCYTES % 11.9 % (2.0-8.0); NEUTROPHILS % 71.8 % (40.0-76.0); PLATELET 310 x1000/uL (130-400); RED CELL DISTRIBUTION WIDTH 17.6 % (11.6-14.6); WHITE BLOOD COUNT 11.7 x1000/uL (4.5-11.0)
[2024-05-31 09:40] LABS: COARSE GRANULAR CASTS URINE 0-5 /lpf; FINE GRANULAR CASTS URINE 0-5 /lpf; HYALINE CASTS URINE 0-5 /lpf
[2024-05-31 09:42] LABS: BACTERIA URINE NONE SEEN; RBC URINE NONE SEEN /hpf (0-2); SQUAMOUS EPITHELIAL CELL URINE 1+ /lpf (RARE/1+); WBC URINE 0-2 /hpf (0-2)
[2024-05-31] MEDS: DEXT 5%/0.9% NACL 1,000 ML IV ONE (11:24)
[2024-05-31] MEDS ORDERED: IPRATROPIUM/ALBUTEROL 0.5-3(2.5)MG/3ML NEB HHN PRN (13:45)
[2024-05-31] MEDS ORDERED: DEXTROSE 50% WATER 50ML SYRINGE IV PRN (14:15)
[2024-05-31] MEDS: ENOXAPARIN 30MG/0.3ML SYR SUBCUT SCH (15:54)
[2024-05-31] MEDS: METOCLOPRAMIDE HCL 10MG/2ML VIAL IV SCH (15:54)
[2024-05-31 16:00] VITALS: BP 128/88; PULSE 96; RESP 18; TEMP 35.78064; O2SAT 98
[2024-05-31 16:58] VITALS: BP 122/81; PULSE 96; RESP 20; TEMP 36.696
[2024-05-31] MEDS: BLOOD SUGAR DIAGNOSTIC STRIP TEST SCH (17:10)
[2024-05-31] MEDS: FUROSEMIDE 40MG TABLET PO SCH (17:15)
[2024-05-31] MEDS: ONDANSETRON HCL 4MG/2ML INJ IV NR (17:16)
[2024-05-31] MEDS: INSULIN LISPRO 100 UNITS/ML SUBCUT SCH (17:40)
[2024-05-31 18:52] LABS: LACTIC ACID 2.2 mmol/L (0.4-2.0)
[2024-05-31 18:59] LABS: ALANINE AMINOTRANSFERASE 50 IU/L (10-49); ALBUMIN 3.4 g/dL (3.2-4.8); AMMONIA 50 uMol/L (<32); ASPARTATE AMINOTRANSFERASE 56 IU/L (<34); BILIRUBIN DIRECT 0.2 mg/dL (<=3.0); BILIRUBIN TOTAL 0.5 mg/dL (0.1-1.0); PHOSPHORUS 4.3 mg/dL (2.5-4.9)
[2024-05-31 19:00] LABS: BETA HYDROXYBUTYRATE 0.1 mMol/L (0.0-0.3); PROTEIN TOTAL 6.1 g/dL (6.0-8.3)
[2024-05-31 19:01] LABS: T4 FREE 1.87 ng/dL (0.89-1.76)
[2024-05-31 19:02] LABS: THYROID STIMULATING HORMONE 2.49 uIU/mL (0.55-4.78)
[2024-05-31] MEDS: ATORVASTATIN CALCIUM 40MG TABLET PO SCH (21:00)
[2024-05-31] MEDS: CARVEDILOL 12.5MG TABLET PO SCH (21:00)
[2024-05-31 22:49] LABS: CLARITY URINE CLEAR (CLEAR); COLOR URINE YELLOW (YELLOW); GLUCOSE URINE NEGATIVE (NEGATIVE); KETONES URINE NEGATIVE (NEGATIVE); LEUKOCYTE ESTERASE URINE NEGATIVE (NEGATIVE); NITRITE URINE NEGATIVE (NEGATIVE); OCCULT BLOOD URINE NEGATIVE (NEGATIVE); PROTEIN URINE 2+ (NEGATIVE); UROBILINOGEN URINE 0.2 E.U./dL (0.2-1.0)
[2024-05-31 23:00] LABS: BACTERIA URINE NONE SEEN; RBC URINE NONE SEEN /hpf (0-2); SQUAMOUS EPITHELIAL CELL URINE NONE SEEN /lpf (RARE/1+); WBC URINE 0-2 /hpf (0-2)
[2024-06-01] VITALS: BP 143/103; PULSE 92; RESP 18; TEMP 35.89176; O2SAT 100
[2024-06-01 04:00] VITALS: BP 135/97; PULSE 88; RESP 20; TEMP 36.16956; O2SAT 100
[2024-06-01 06:56] LABS: BASOPHILS % 0.3 % (0.0-2.0); EOSINOPHILS % 0.1 % (0.0-5.0); HEMATOCRIT. 40.2 % (42.0-52.0); LYMPHOCYTES % 17.7 % (20.0-50.0); MEAN CORPUSCULAR HEMOGLOBIN 27.9 pg (28.0-32.0); MEAN CORPUSCULAR HGB CONC 32.5 g/dL (31.0-37.0); MEAN CORPUSCULAR VOLUME 85.9 fL (80.0-94.0); MEAN PLATELET VOLUME 9.1 fl (7.4-10.4); MONOCYTES % 12.8 % (2.0-8.0); NEUTROPHILS % 69.1 % (40.0-76.0); PLATELET 275 x1000/uL (130-400); RED BLOOD CELL COUNT 4.68 mill/uL (4.7-6.1); RED CELL DISTRIBUTION WIDTH 17.1 % (11.6-14.6); WHITE BLOOD COUNT 10.7 x1000/uL (4.5-11.0)
[2024-06-01 07:29] LABS: POTASSIUM 5.5 mEq/L (3.5-5.1)
[2024-06-01 07:35] LABS: CREATININE 2.1 mg/dL (0.6-1.3)
[2024-06-01 08:00] VITALS: BP 129/105; PULSE 95; RESP 20; TEMP 36.05844; O2SAT 98
[2024-06-01] MEDS: THIAMINE HCL 100MG TABLET PO SCH (09:00)
[2024-06-01] MEDS: FOLIC ACID 1MG TABLET PO SCH (09:27)
[2024-06-01] MEDS: ASPIRIN 81MG EC TABLET PO SCH (09:28)
[2024-06-01] MEDS: SODIUM ZIRCONIUM CYCLOSILICATE 10GM/PACKET PO NR (09:28)
[2024-06-01] MEDS: LOSARTAN 50 MG TABLET PO SCH (11:47)
[2024-06-01 12:00] VITALS: BP 110/81; PULSE 100; RESP 18; TEMP 36.55848; O2SAT 99
[2024-06-01 16:00] VITALS: BP 122/91; PULSE 88; RESP 20; TEMP 36.9474; TEMP 36.94740; O2SAT 100
[2024-06-01 21:00] VITALS: PULSE 78
[2024-06-05 09:11] LABS: PRO INSULIN 38.1 pmol/L (0.0-10.0)
== END 2024-06-02 05:15 | disposition left against medical advice (07) | DRG 420 ==
LOC: ER 08:44 → 5WST 13:09 → EDBEDREQ 13:37 → 5WST 15:27 → 8WST 16:07
PROVIDERS: ADMIT Internal Medicine; ATTEND Internal Medicine
DX: E11.649 Type 2 diabetes mellitus with hypoglycemia without coma (principal); N17.0 Acute kidney failure with tubular necrosis; G93.41 Metabolic encephalopathy; I13.0 Hypertensive heart and chronic kidney disease with heart failure and stage 1 through stage 4 chronic kidney disease, or unspecified chronic kidney disease; I50.42 Chronic combined systolic (congestive) and diastolic (congestive) heart failure; E83.51 Hypocalcemia; D64.9 Anemia, unspecified; E11.22 Type 2 diabetes mellitus with diabetic chronic kidney disease; Z53.29 Procedure and treatment not carried out because of patient's decision for other reasons; E78.5 Hyperlipidemia, unspecified; I08.0 Rheumatic disorders of both mitral and aortic valves; N18.9 Chronic kidney disease, unspecified; F14.10 Cocaine abuse, uncomplicated; I25.10 Atherosclerotic heart disease of native coronary artery without angina pectoris; Z79.84 Long term (current) use of oral hypoglycemic drugs; Z88.0 Allergy status to penicillin
CPT/HCPCS: 36415; 71045; 80048; 80076; 81003; 82010; 82140; 82962; 83036; 83525; 83605; 83735; 84100; 84206; 84439; 84443; 84681; 85025; 93005; 99291; J1650; J2405; J2765; J7042